=== PATIENT | female | born 2000 | race Caucasian/White ===

== ENCOUNTER 2018-07-29 02:47 | Emergency (ER) | payer OTHER ==
[2018-07-29] MEDS: ONDANSETRON (ODT) 4 MG TAB ODT (05:48)
[2018-07-29] MEDS: morphine 4 MG/ML VIAL IM (05:51)
[2018-07-29] MEDS: KETOROLAC 30 MG INJ IM (05:54)
[2018-07-29 06:40] LABS: ADD UMIC NO; UR ASCORBIC ACID NEGATIVE (NEGATIVE); UR BACTERIA FEW /HPF (NONE SEEN); UR BILIRUBIN (Dip) NEGATIVE (NEGATIVE); UR BLOOD (Dip) NEGATIVE (NEGATIVE); UR CALCIUM OXALATE CRYSTAL MODERATE /HPF (NONE SEEN); UR CLARITY SLIGHTLY CLOUDY (CLEAR); UR COLOR YELLOW (YELLOW); UR GLUCOSE (Dip) NEGATIVE (NEGATIVE); UR KETONES (Dip) NEGATIVE (NEGATIVE); UR LEUKOCYTE ESTERASE (Dip) NEGATIVE Leu/ul (NEGATIVE); UR MUCUS FEW /HPF (NONE SEEN); UR NITRITE (Dip) NEGATIVE (NEGATIVE); UR RBC 6 /HPF (0-5); UR SPECIFIC GRAVITY (Dip) 1.028 (1.003-1.030); UR SQUAMOUS EPITHELIAL CELL FEW /HPF (FEW); UR TOTAL PROTEIN (Dip) NEGATIVE (NEGATIVE); UR UROBILINOGEN (Dip) NEGATIVE (NEGATIVE); UR WBC 3 /HPF (0-5)
== END 2018-07-29 07:06 | disposition home or self-care (01) ==
LOC: FTE 02:47
DX: M54.5 Low back pain (principal); K59.00 Constipation, unspecified
CPT/HCPCS: 72100; 81001; 81003; 81025; 96372; 99284-25

== ENCOUNTER → 2018-10-09 | Emergency (ER) | payer OTHER ==
[2018-10-09 18:31] LABS: ADD MAN DIFF? NO
[2018-10-09 18:41] LABS: BASOPHILS % 0.3 % (0.0-2.0); EOSINOPHILS # 0.1 10^3/ul (0.0-0.5); EOSINOPHILS % 0.8 % (0.0-7.0); HEMATOCRIT 43.6 % (37.0-47.0); HEMOGLOBIN 14.5 g/dl (12.0-16.0); LYMPHOCYTES # 2.3 10^3/ul (0.8-2.9); LYMPHOCYTES % 29.1 % (18.0-55.0); MEAN CORPUSCULAR HEMOGLOBIN 28.2 pg (29.0-33.0); MEAN CORPUSCULAR HGB CONC 33.3 g/dl (32.0-37.0); MEAN CORPUSCULAR VOLUME 84.7 fl (72.0-104.0); MEAN PLATELET VOLUME 10.2 fl (7.4-10.4); MONOCYTE # 0.5 10^3/ul (0.3-0.9); MONOCYTES % 6.3 % (0.0-13.0); NEUTROPHILS % 63.2 % (30.0-74.0); PLATELET COUNT 296 10^3/UL (140-415); RED BLOOD COUNT 5.15 10^6/ul (4.20-5.40); RED CELL DISTRIBUTION WIDTH 13.2 % (11.5-14.5)
[2018-10-09 18:41] LABS: WHITE BLOOD COUNT 7.9 10^3/ul (4.8-10.8)
[2018-10-09 19:07] LABS: ALANINE AMINOTRANSFERASE 27 IU/L (13-69); ALBUMIN 4.9 g/dl (3.3-4.9); ALBUMIN/GLOBULIN RATIO 1.13; ALKALINE PHOSPHATASE 116 IU/L (42-121); ANION GAP 15 (5-13); ASPARTATE AMINO TRANSFERASE 42 IU/L (15-46); BILIRUBIN,INDIRECT 0.3 mg/dl (0-1.1); BILIRUBIN,TOTAL 0.3 mg/dl (0.2-1.3); BLOOD UREA NITROGEN 10 mg/dl (7-20); CALCIUM 10.1 mg/dl (8.4-10.2); CARBON DIOXIDE 27 mmol/L (21-31); CHLORIDE 100 mmol/L (97-110); CREATININE 0.58 mg/dl (0.44-1.00); Estimated GFR > 60 mL/min (>60); GLUCOSE 95 mg/dl (70-220); POTASSIUM 4.1 mmol/L (3.5-5.1); SODIUM 142 mmol/L (135-144); TOTAL PROTEIN 9.2 g/dl (6.1-8.1)
[2018-10-09 19:23] LABS: FREE T4 (FREE THYROXINE) 0.89 ng/dl (0.79-2.35)
[2018-10-09 19:24] LABS: T4 (THYROXINE) 7.7 ug/dl (5.5-11.0)
== END | disposition home or self-care (01) ==
LOC: FTE 17:46
DX: R05 Cough (principal); R42 Dizziness and giddiness
CPT/HCPCS: 71045; 80053; 84436; 84439; 84443; 85025; 93005; 99285-25

== ENCOUNTER 2019-03-24 17:41 | Emergency (ER) | payer OTHER ==
[2019-03-24] MEDS: IBUPROFEN 600 MG TAB PO (19:03)
[2019-03-24] MEDS: DEXAMETHASONE 4 MG TAB PO (19:13)
== END 2019-03-24 20:57 | disposition home or self-care (01) ==
LOC: FTE 17:41
DX: J02.9 Acute pharyngitis, unspecified (principal)
CPT/HCPCS: 87880; 99283